=== PATIENT | female | born 1960 | race African-American/Black ===

== ENCOUNTER 2018-09-17 12:04 | Emergency (ER) | payer MEDICARE ==
[~2018-09-17] VITALS: Ht 157.5 cm; Wt 88.3 kg
--- NOTE | 2018-09-17 12:49 | PHYS DOC ---
Adult General Chief Complaint Chief Complaint: PSYCH EVALUATION HPI HPI Patient is a 58 year old AA female who presents to the emergency department with reports of demons in her head. Patient reports that for the last 12 years she has had demons that come and visit her intermittently. She states that she is supposed to take Latuda for schizophrenia but has been off of the medication for several months. Patient reports concern that the demon is going to harm and rape her children and grandchildren. She states the demon already has her grandson. she currently denies any suicide attempt or suicidal ideations. Radha valladares also denies any homicidal ideations. She denies any pain at this time. Review of Systems Review of Systems Constitutional: Denies fever or chills [] Eyes: Denies change in visual acuity, redness, or eye pain [] HENT: Denies nasal congestion or sore throat [] Respiratory: Denies cough or shortness of breath [] Cardiovascular: No additional information not addressed in HPI [] GI: Denies abdominal pain, nausea, vomiting, or diarrhea [] : Denies dysuria or hematuria [] Musculoskeletal: Denies back pain or joint pain [] Integument: Denies rash or skin lesions [] Neurologic: Denies headache, focal weakness or sensory changes [] psychiatric: see HPI complete systems were reviewed and found to be within normal limits, except as documented in this note. Current Medications Current Medications Current Medications Medications (Trade) Dose Ordered Sig/Cassidy Start Time Stop Time Status Last Admin Dose Admin Potassium Chloride (Klor-Con) 40 meq 1X ONCE 09/17/18 14:30 09/17/18 14:31 DC 09/17/18 14:57 40 MEQ Ziprasidone (Geodon Im) 10 mg 1X ONCE 09/17/18 13:30 09/17/18 13:31 DC 09/17/18 13:40 10 MG Allergies Allergies Allergies Coded Allergies Type Severity Reaction Last Updated Verified No Known Drug Allergies 09/17/18 No Physical Exam Physical Exam Constitutional: Well developed, well nourished, no acute distress, non-toxic appearance. [] HENT: Normocephalic, atraumatic, bilateral external ears normal, oropharynx dry, lips dry,, no oral exudates, nose normal. [] Eyes: PERRLA, conjunctiva normal, no discharge. [] Neck: Normal range of motion, no stridor. [] Cardiovascular:Heart rate regular rhythm Lungs & Thorax: Bilateral breath sounds clear to auscultation [] Abdomen: Bowel sounds normal, soft, no tenderness, no masses, no pulsatile masses. [] Skin: Warm, dry, no erythema, no rash. [] Extremities: No cyanosis, no clubbing, ROM intact, no edema. [] Neurologic: Alert and oriented X 3, no focal deficits noted. [] Psychologic: Affect paranoid, anxious; auditory hallucinations present, rambling Current Patient Data Vital Signs Lab Values Laboratory Tests Test 09/17/18 12:30 09/17/18 13:00 09/17/18 13:22 Urine Opiates Screen Neg (NEG) Urine Methadone Screen Neg (NEG) Urine Barbiturates Neg (NEG) Urine Phencyclidine Screen Neg (NEG) Urine Amphetamine/Methamphetamine Neg (NEG) Urine Benzodiazepines Screen Neg (NEG) Urine Cocaine Screen Neg (NEG) Urine Cannabinoids Screen Neg (NEG) Urine Ethyl Alcohol Neg (NEG) Urine Test Negative (NEG) White Blood Count 6.3 x10^3/uL (4.0-11.0) Red Blood Count 4.62 x10^6/uL (3.50-5.40) Hemoglobin 14.9 g/dL (12.0-15.5) Hematocrit 43.0 % (36.0-47.0) Mean Corpuscular Volume 93 fL (79-100) Mean Corpuscular Hemoglobin 32 pg (25-35) Mean Corpuscular Hemoglobin Concent 35 g/dL (31-37) Red Cell Distribution Width 15.0 % (11.5-14.5) H Platelet Count 281 x10^3/uL (140-400) Neutrophils (%) (Auto) 59 % (31-73) Lymphocytes (%) (Auto) 30 % (24-48) Monocytes (%) (Auto) 10 % (0-9) H Eosinophils (%) (Auto) 0 % (0-3) Basophils (%) (Auto) 1 % (0-3) Neutrophils # (Auto) 3.7 x10^3uL (1.8-7.7) Lymphocytes # (Auto) 1.9 x10^3/uL (1.0-4.8) Monocytes # (Auto) 0.6 x10^3/uL (0.0-1.1) Eosinophils # (Auto) 0.0 x10^3/uL (0.0-0.7) Basophils # (Auto) 0.0 x10^3/uL (0.0-0.2) Sodium Level 143 mmol/L (136-145) Potassium Level 3.2 mmol/L (3.5-5.1) L Chloride Level 105 mmol/L (98-107) Carbon Dioxide Level 29 mmol/L (21-32) Anion Gap 9 (6-14) Blood Urea Nitrogen 9 mg/dL (7-20) Creatinine 0.9 mg/dL (0.6-1.0) Estimated GFR (Cockcroft-Gault) 78.4 BUN/Creatinine Ratio 10 (6-20) Glucose Level 115 mg/dL (70-99) H Calcium Level 9.9 mg/dL (8.5-10.1) Magnesium Level 1.8 mg/dL (1.8-2.4) Total Bilirubin 0.6 mg/dL (0.2-1.0) Aspartate Amino Transferase (AST) 18 U/L (15-37) Alanine Aminotransferase (ALT) 30 U/L (14-59) Alkaline Phosphatase 71 U/L (46-116) Total Protein 7.7 g/dL (6.4-8.2) Albumin 3.6 g/dL (3.4-5.0) Albumin/Globulin Ratio 0.9 (1.0-1.7) L Laboratory Tests 09/17/18 13:22 Laboratory Tests 09/17/18 13:22 EKG EKG [] Radiology/Procedures Radiology/Procedures [] Course & Med Decision Making Course & Med Decision Making Pertinent Labs and Imaging studies reviewed. (See chart for details) dx: schizophrenia with acute paranoia, paranoia, auditory hallucinations 1:1 obs initiated upon arrival, CBC unremarkable, patient's potassium is 3.2, glucose 115, CMP otherwise unremarkable; urine drug screen negative, PAT consult conducted by Volodymyr. Patient was given 40 mEq of potassium chloride, and 10 mg of intramuscular Geodon in the department. 2055 patient is accepted by to [facility] psychiatric facility, will transfer patient via EMS Dragon Disclaimer Dragon Disclaimer This electronic medical record was generated, in whole or in part, using a voice recognition dictation system. Departure Departure Impression: Primary Impression: Paranoid schizophrenia, chronic condition with acute exacerbation Additional Impressions: Acute paranoia Hallucinations, unspecified Disposition: 02 TRANSFER [facility] ([facility]) Condition: STABLE Referrals: NO PCP (PCP) Problem Qualifiers BERTHA MIRANDA APRN Sep 17, 2018 12:49
[2018-09-17 13:01] LABS: AMPHETAMINE/METHAMPHETAMINE NEG (NEG); BARBITURATES NEG (NEG); BENZODIAZEPINES NEG (NEG); CANNABINOIDS NEG (NEG); COCAINE NEG (NEG); METHADONE NEG (NEG); OPIATES NEG (NEG); PHENCYCLIDINE NEG (NEG)
[2018-09-17 13:28] LABS: BASO % 1 % (0-3); EOS % 0 % (0-3); HEMOGLOBIN 14.9 g/dL (12.0-15.5); LYMPH # 1.9 x10^3/uL (1.0-4.8); LYMPH % 30 % (24-48); MEAN CORPUSCULAR HEMOGLOBIN 32 pg (25-35); MEAN CORPUSCULAR HGB CONC 35 g/dL (31-37); MEAN CORPUSCULAR VOLUME 93 fL (79-100); MONO # 0.6 x10^3/uL (0.0-1.1); MONO % 10 % (0-9); NEUT # 3.7 x10^3uL (1.8-7.7); NEUT % 59 % (31-73); PLATELET COUNT 281 x10^3/uL (140-400); RED BLOOD COUNT 4.62 x10^6/uL (3.50-5.40); WHITE BLOOD COUNT 6.3 x10^3/uL (4.0-11.0)
[2018-09-17] MEDS ORDERED: ZIPRASIDONE IM 20 MG VIAL. IM ONE (13:30)
[2018-09-17 13:38] LABS: U PREG PATIENT NEGATIVE (NEG)
[2018-09-17 13:52] LABS: CALCIUM 9.9 mg/dL (8.5-10.1); CREATININE 0.9 mg/dL (0.6-1.0); GFR 78.4; POTASSIUM 3.2 mmol/L (3.5-5.1)
[2018-09-17 13:58] LABS: ALBUMIN 3.6 g/dL (3.4-5.0); ALBUMIN/GLOBULIN RATIO 0.9 (1.0-1.7); TOTAL BILIRUBIN 0.6 mg/dL (0.2-1.0); TOTAL PROTEIN 7.7 g/dL (6.4-8.2)
[2018-09-17] MEDS ORDERED: POTASSIUM CHLORIDE 20 MEQ TABLET.ER. PO ONE (14:30)
[2018-09-17 21:06] VITALS: BP 154/89
== END 2018-09-17 21:30 ==
LOC: ER 12:04
DX: F20.0 Paranoid schizophrenia (principal)
CPT/HCPCS: 36415; 80053; 80307; 81025; 83735; 85025; 96372; 99285; J3486

== ENCOUNTER 2019-11-08 07:26 | Emergency (ER) | payer MEDICARE ==
[~2019-11-08] VITALS: Ht 157.5 cm; Wt 198.0 kg
[2019-11-08] MEDS ORDERED: ASPIRIN CHEWABLE 81 MG TABLET. PO ONE (09:30)
[2019-11-08 09:37] VITALS: BP 153/102
--- NOTE | 2019-11-08 09:46 | PHYS DOC ---
Past Medical History Past Medical History: No Pertinent History Past Surgical History: Tubal ligation Smoking Status: Current Every Day Smoker Alcohol Use: Occasionally Drug Use: Cocaine Adult General Chief Complaint Chief Complaint: BREAST PROBLEM HPI HPI Patient is a 59 year old female who presents with epigastric pain that has been ongoing for several days. The patient states that it is in the bottom of her chest that radiates to the right side of her chest. It's her pain as 5 out of 10 in severity with patient states she's had a cold that has improved that started several weeks ago. Denies any medical history the exception of hypertension. Complete ROS were reviewed and found to be within normal limits, except as documented in the HPI Current Medications Current Medications Current Medications Medications (Trade) Dose Ordered Sig/Cassidy Start Time Stop Time Status Last Admin Dose Admin Aspirin (Children'S Aspirin) 324 mg 1X ONCE 11/08/19 09:30 11/08/19 09:33 DC 11/08/19 09:47 324 MG Allergies Allergies Allergies Coded Allergies Type Severity Reaction Last Updated Verified No Known Drug Allergies 09/17/18 No Physical Exam Physical Exam Constitutional: Well developed, well nourished, no acute distress, non-toxic appearance. [] HENT: Normocephalic, atraumatic, bilateral external ears normal, oropharynx moist, no oral exudates, nose normal. [] Eyes: PERRLA, EOMI, conjunctiva normal, no discharge. [] Neck: Normal range of motion, no tenderness, supple, no stridor. [] Cardiovascular:Heart rate regular rhythm, no murmur, epigastric pain is tender to palpation. Lungs & Thorax: Bilateral breath sounds clear to auscultation [] Abdomen: Bowel sounds normal, soft, no masses, no pulsatile masses. [] Skin: Warm, dry, no erythema, no rash. [] Back: No tenderness, no CVA tenderness. [] Extremities: No tenderness, no cyanosis, no clubbing, ROM intact, no edema. [] Neurologic: Alert and oriented X 3, normal motor function, normal sensory function, no focal deficits noted. [] Psychologic: Affect normal, judgement normal, mood normal. [] Current Patient Data Vital Signs Vital Signs Date Time Temp Pulse Resp B/P (MAP) Pulse Ox O2 Delivery O2 Flow Rate FiO2 11/08/19 07:51 97.6 64 20 155/106 (122) 95 Room Air 97.6 Lab Values Laboratory Tests Test 11/08/19 09:40 White Blood Count 5.7 x10^3/uL (4.0-11.0) Red Blood Count 4.35 x10^6/uL (3.50-5.40) Hemoglobin 13.4 g/dL (12.0-15.5) Hematocrit 40.3 % (36.0-47.0) Mean Corpuscular Volume 93 fL (79-100) Mean Corpuscular Hemoglobin 31 pg (25-35) Mean Corpuscular Hemoglobin Concent 33 g/dL (31-37) Red Cell Distribution Width 15.3 % (11.5-14.5) H Platelet Count 289 x10^3/uL (140-400) Neutrophils (%) (Auto) 64 % (31-73) Lymphocytes (%) (Auto) 28 % (24-48) Monocytes (%) (Auto) 6 % (0-9) Eosinophils (%) (Auto) 1 % (0-3) Basophils (%) (Auto) 1 % (0-3) Neutrophils # (Auto) 3.6 x10^3/uL (1.8-7.7) Lymphocytes # (Auto) 1.6 x10^3/uL (1.0-4.8) Monocytes # (Auto) 0.4 x10^3/uL (0.0-1.1) Eosinophils # (Auto) 0.1 x10^3/uL (0.0-0.7) Basophils # (Auto) 0.0 x10^3/uL (0.0-0.2) Prothrombin Time 11.4 SEC (11.7-14.0) L Prothrombin Time INR 0.9 (0.8-1.1) Activated Partial Thromboplast Time 25 SEC (24-38) Sodium Level 142 mmol/L (136-145) Potassium Level 4.0 mmol/L (3.5-5.1) Chloride Level 105 mmol/L (98-107) Carbon Dioxide Level 26 mmol/L (21-32) Anion Gap 11 (6-14) Blood Urea Nitrogen 15 mg/dL (7-20) Creatinine 1.0 mg/dL (0.6-1.0) Estimated GFR (Cockcroft-Gault) 69.1 BUN/Creatinine Ratio 15 (6-20) Glucose Level 134 mg/dL (70-99) H Calcium Level 8.7 mg/dL (8.5-10.1) Total Bilirubin 0.3 mg/dL (0.2-1.0) Aspartate Amino Transferase (AST) 16 U/L (15-37) Alanine Aminotransferase (ALT) 24 U/L (14-59) Alkaline Phosphatase 54 U/L (46-116) Troponin I Quantitative < 0.017 ng/mL (0.000-0.055) Total Protein 5.9 g/dL (6.4-8.2) L Albumin 2.9 g/dL (3.4-5.0) L Albumin/Globulin Ratio 1.0 (1.0-1.7) Laboratory Tests 11/08/19 09:40 Laboratory Tests 11/08/19 09:40 EKG EKG [] Radiology/Procedures Radiology/Procedures [][facility] [address] [place] [address] IMAGING REPORT Signed PATIENT: IGNACIO BOYD ACCOUNT: [id number] : 1960 LOCATION: ER AGE: 59 SEX: F EXAM STATUS: REG ER ORD. PHYSICIAN: KIMANI SKELTON APRN REASON: COUGH,CHEST PAIN PROCEDURE: CHEST PA & LATERAL Chest, PA and Lateral: Technique: PA and lateral views of the chest were obtained. History: Cough. Comparison: None. Findings: The cardiomediastinal silhouette grossly appears unremarkable. Mild prominent bilateral interstitial lung markings likely mild interstitial infiltrates or edema. IMPRESSION: Mild prominent bilateral interstitial lung markings likely mild interstitial infiltrates or edema. Electronically signed by: Ed Li MD (11/08/2019 10:32 AM) [id number] DICTATED and SIGNED BY: ED LI MD DATE: 11/08/19 1032 Course & Med Decision Making Course & Med Decision Making Pertinent Labs and Imaging studies reviewed. (See chart for details) Patient is having some epigastric pain that is tender on palpation. The patient has had a cough the last several weeks. Will get EKG, chest x-ray, labs, it is likely musculoskeletal in nature. Labs are unremarkable. Chest x-ray shows possible pneumonia. Dragon Disclaimer Dragon Disclaimer This electronic medical record was generated, in whole or in part, using a voice recognition dictation system. Departure Departure Impression: Primary Impression: Pneumonia Disposition: HOME, SELF-CARE Condition: STABLE Referrals: UNKNOWN PCP NAME (PCP) Patient Instructions: Pneumonia, Adult Additional Instructions: Thank you for visiting [facility]. We appreciate you trusting us with your care. If any additional problems come up don't hesitate to return to visit us. Please follow up with your primary care provider so they can plan additional care if needed and know about the problem that you had. If symptoms worsen come back to the Emergency Department. Any concerning symptoms that start such as chest pain, shortness of air, weakness or numbness on one side of the body, running high fevers or any other concerning symptoms return to the ER. You have been prescribed an antibiotic today to help fight your infection. Please take all of the antibiotic as directed. If after 48 hours the infection is not improving, please return for more care. If the infection worsens, return to ER for additional care. Scripts Doxycycline Hyclate (DOXYCYCLINE HYCLATE) 100 Mg Capsule 1 CAP PO BID for 10 Days, #20 CAP Prov: KIMANI SKELTON APRN 11/08/19 The HEART Score for CP Pts HEART Score for Chest Pain: HEART Score for Chest Pain Response (Comments) Value History Slighlty/Non-Suspicious 0 ECG Normal 0 Age >45 - < 65 1 Risk Factors 1 or 2 Risk Factors 1 Troponin < Normal Limit 0 Total 2 Risk Factors: Risk Factors: DM, Current or recent (<one month) smoker, HTN, HLP, family history of CAD, obesity. Risk Scores: Score 0 - 3: 2.5% MACE over next 6 weeks - Discharge Home Score 4 - 6: 20.3% MACE over next 6 weeks - Admit for Clinical Observation Score 7 - 10: 72.7% MACE over next 6 weeks - Early Invasive Strategies Problem Qualifiers Primary Impression: Pneumonia Pneumonia type: due to unspecified organism Laterality: bilateral Lung location: lower lobe of lung Qualified Codes: J18.9 - Pneumonia, unspecified organism KIMANI SKELTON APRN Nov 08, 2019 09:46
[2019-11-08 10:00] LABS: CALCIUM 8.7 mg/dL (8.5-10.1); GFR 69.1
[2019-11-08 10:03] LABS: BASO % 1 % (0-3); EOS # 0.1 x10^3/uL (0.0-0.7); EOS % 1 % (0-3); HEMATOCRIT 40.3 % (36.0-47.0); HEMOGLOBIN 13.4 g/dL (12.0-15.5); LYMPH # 1.6 x10^3/uL (1.0-4.8); LYMPH % 28 % (24-48); MEAN CORPUSCULAR HEMOGLOBIN 31 pg (25-35); MEAN CORPUSCULAR HGB CONC 33 g/dL (31-37); MEAN CORPUSCULAR VOLUME 93 fL (79-100); MONO # 0.4 x10^3/uL (0.0-1.1); MONO % 6 % (0-9); NEUT # 3.6 x10^3/uL (1.8-7.7); NEUT % 64 % (31-73); PLATELET COUNT 289 x10^3/uL (140-400); RED BLOOD COUNT 4.35 x10^6/uL (3.50-5.40); RED CELL DISTRIBUTION WIDTH 15.3 % (11.5-14.5); WHITE BLOOD COUNT 5.7 x10^3/uL (4.0-11.0)
[2019-11-08 10:05] LABS: ALBUMIN 2.9 g/dL (3.4-5.0); TOTAL BILIRUBIN 0.3 mg/dL (0.2-1.0); TOTAL PROTEIN 5.9 g/dL (6.4-8.2)
[2019-11-08 10:17] LABS: PROTHROMBIN TIME PATIENT 11.4 SEC (11.7-14.0)
--- NOTE | 2019-11-08 10:32 | EKG ---
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
--- NOTE | 2019-11-08 10:35 | RAD ---
Chest, PA and Lateral: Technique: PA and lateral views of the chest were obtained. History: Cough. Comparison: None. Findings: The cardiomediastinal silhouette grossly appears unremarkable. Mild prominent bilateral interstitial lung markings likely mild interstitial infiltrates or edema. IMPRESSION: Mild prominent bilateral interstitial lung markings likely mild interstitial infiltrates or edema. Electronically signed by: Ed Li MD (11/08/2019 10:32 AM) [id number]
[2019-11-08] MEDS ORDERED: DOXY100C2 PO (10:45)
== END 2019-11-08 11:04 | disposition home or self-care (01) ==
LOC: ER 07:26
DX: J18.9 Pneumonia, unspecified organism (principal); F17.200 Nicotine dependence, unspecified, uncomplicated
CPT/HCPCS: 36415; 71046; 80053; 84484; 85025; 85610; 85730; 93005; 99285-25

== ENCOUNTER 2019-12-28 07:01 | Emergency (ER) | payer MEDICARE ==
[~2019-12-28] VITALS: Ht 157.5 cm; Wt 185.0 kg
[~2019-12-28 07:01] MED LIST: DOXY100C2 PO
--- NOTE | 2019-12-28 07:20 | PHYS DOC ---
Past Medical History Past Medical History: Hypertension Past Surgical History: Tubal ligation Smoking Status: Current Every Day Smoker Alcohol Use: Occasionally Drug Use: Cocaine General Adult EDM: Chief Complaint: COUGH HPI: HPI: Patient is a 59 year old female who presents to ER today for evaluation chest pain off and on over the weekend. Patient has history of hypertension. She is supposed be on amlodipine 10 mg daily, she had not taken her morning medication. Patient also has been drinking alcohol since she been laid off from work. Patient denies any fever. Patient says she was evaluated here in November, diagnosed with pneumonia. Patient was given antibiotics but she did not finish the medication. Patient denies any fever. Patient denies being exposed to anybody who was tested positive for the COVID-19. Patient denies any history of diabetes, no family history of heart disease, no recent travel or operation. Patient is a smoker. Patient had no previous family history of blood clot disorder. Review of Systems: Review of Systems: Constitutional: Denies fever or chills. [] Eyes: Denies change in visual acuity. [] HENT: Denies nasal congestion or sore throat. [] Respiratory: Positive cough , no shortness of breath. [] Cardiovascular: Positive for chest pain , no edema. [] GI: Denies abdominal pain, nausea, vomiting, bloody stools or diarrhea. [] : Denies dysuria. [] Musculoskeletal: Denies back pain or joint pain. [] Integument: Denies rash. [] Neurologic: Denies headache, focal weakness or sensory changes. [] Endocrine: Denies polyuria or polydipsia. [] Lymphatic: Denies swollen glands. [] Psychiatric: Denies depression or anxiety. [] Heart Score: HEART Score for Chest Pain: HEART Score for Chest Pain Response (Comments) Value History Slighlty/Non-Suspicious 0 ECG Nonspecific Repolarizatio 1 Age >45 - < 65 1 Risk Factors 1 or 2 Risk Factors 1 Troponin >1-<3x Normal Limit 1 Total 4 Risk Factors: Risk Factors: DM, Current or recent (<one month) smoker, HTN, HLP, family history of CAD, obesity. Risk Scores: Score 0 - 3: 2.5% MACE over next 6 weeks - Discharge Home Score 4 - 6: 20.3% MACE over next 6 weeks - Admit for Clinical Observation Score 7 - 10: 72.7% MACE over next 6 weeks - Early Invasive Strategies Allergies: Allergies: Allergies Coded Allergies Type Severity Reaction Last Updated Verified No Known Drug Allergies 09/17/18 No Physical Exam: PE: Constitutional: Well developed, well nourished, no acute distress, non-toxic appearance. [] HENT: Normocephalic, atraumatic, bilateral external ears normal, oropharynx moist, no oral exudates, nose normal. [] Eyes: PERRLA, EOMI, conjunctiva normal, no discharge. [] Neck: Normal range of motion, no tenderness, supple, no stridor. [] Cardiovascular:Heart rate regular rhythm, no murmur [] Lungs & Thorax: Bilateral breath sounds clear to auscultation [] Abdomen: Bowel sounds normal, soft, no tenderness, no masses, no pulsatile masses. [] Skin: Warm, dry, no erythema, no rash. [] Back: No tenderness, no CVA tenderness. [] Extremities: No tenderness, no cyanosis, no clubbing, ROM intact, no edema. [] Neurologic: Alert and oriented X 3, normal motor function, normal sensory function, no focal deficits noted. [] Psychologic: Affect normal, judgement normal, mood normal. [] EKG: EKG: EKG was done at 748, heart rate of 68 beats per minutes, no ST segment elevation [] Radiology/Procedures: Radiology/Procedures: [][facility] [address] [place] [address] IMAGING REPORT Signed PATIENT: IGNACIO BOYD ACCOUNT: [id number] : 1960 LOCATION: ER AGE: 59 SEX: F EXAM STATUS: REG ER ORD. PHYSICIAN: DILCIA LACY DO REASON: COUGH, SOA PROCEDURE: PORTABLE CHEST 1V PORTABLE CHEST 1V History: Cough, shortness of breath.. Cardiomediastinal silhouette is stable and not enlarged. The aorta again demonstrates ectasia and tortuosity. No evidence of focal infiltrate. No pleural effusion. No evidence of pneumothorax. Bones appear grossly intact. IMPRESSION: Stable exam. No consolidating infiltrate. Electronically signed by: Speedy Bellamy MD (12/28/2019 8:46 AM) [id number] DICTATED and SIGNED BY: SPEEDY BELLAMY MD DATE: 12/28/19 0846 [facility] [address] [place] [address] IMAGING REPORT Signed PATIENT: IGNACIO BOYD ACCOUNT: [id number] : 1960 LOCATION: ER AGE: 59 SEX: F EXAM STATUS: REG ER ORD. PHYSICIAN: DILCIA LACY DO REASON: chest pain, hypertensive, dissection protocol PROCEDURE: CT ANGIO CHEST ABD PELVIS Examination: CT ANGIO CHEST ABD PELVIS History: Chest pain, hypertension Comparison/Correlation: None Findings: Axial images of the chest, abdomen, and pelvis were obtained without contrast and then with contrast according to dissection protocol. Maximum intensity projection images were provided. 3-D volume rendered images were provided. The left common carotid artery arises from the right brachycephalic artery. High takeoff of the right common carotid artery at the base of the neck level is seen. There is no intramural hematoma identified involving the aorta or its branches. No dissection identified. Superior mesenteric and sagittal arteries are widely patent. 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 The tracheobronchial tree is unremarkable. Both emphysematous involvement of the upper lung francois is noted. No infiltrate or effusion. No enlarged thoracic lymph nodes. Diffuse fatty infiltration of the liver is present. Spleen, pancreas, adrenal glands and left kidney are normal. Right renal lower pole 1.3 cm diameter cyst is present. Diverticulosis is present. Appendix is normal. No enlarged abdominal or pelvic lymph nodes. No ascites or pelvic free fluid. Uterus is enlarged with multiple fibroids within it. The largest of these at the uterine fundus anteriorly measuring 2.7 cm diameter. Bony structures are unremarkable. Impression: There is no evidence of aortic dissection, aneurysm, or intramural hematoma. 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 Fatty liver. Diverticulosis. PQRS Compliance Statement: One or more of the following individualized dose reduction techniques were utilized for this examination: 1. Automated exposure control 2. Adjustment of the mA and/or kV according to patient size 3. Use of iterative reconstruction technique Electronically signed by: Bubba Koroma MD (12/28/2019 11:16 AM) [id number] DICTATED and SIGNED BY: BUBBA KOROMA MD DATE: 12/28/19 1116 Course & Med Decision Making: Course & Med Decision Making COVID-19 CRITERIA: The patient was evaluated during the global COVID-19 pandemic, and that diagnosis was suspected/considered upon their initial presentation. Their evaluation, treatment and testing was consistent with curr ent guidelines for patients who present with complaints or symptoms that may be related to COVID-19. Pertinent Labs and Imaging studies reviewed. (See chart for details) Dragon Disclaimer: Dragon Disclaimer: This electronic medical record was generated, in whole or in part, using a voice recognition dictation system. Departure Departure Impression: Primary Impression: Chest pain Additional Impression: Hypertension Disposition: ADMITTED INPATIENT Admitting Physician: JOSE (DR. SHINE) Condition: STABLE Referrals: UNKNOWN PCP NAME (PCP) COVID-19 Assessment: COVID-19 Patient Risks: Age 65 or older: No Sign of co-morbidity: No Exp to person + for COVID: No Exp to PUI: No Travel from affected area: No Lower respiratory symptoms: No Fever: No Other: No PPE Use: Full PPE with N95 mask or PAPR: Yes DILCIA LACY DO Dec 28, 2019 07:20
[2019-12-28 08:09] LABS: BASO % 1 % (0-3); EOS # 0.1 x10^3/uL (0.0-0.7); EOS % 2 % (0-3); HEMATOCRIT 41.9 % (36.0-47.0); HEMOGLOBIN 14.2 g/dL (12.0-15.5); LYMPH % 23 % (24-48); MEAN CORPUSCULAR HEMOGLOBIN 32 pg (25-35); MEAN CORPUSCULAR HGB CONC 34 g/dL (31-37); MEAN CORPUSCULAR VOLUME 93 fL (79-100); MONO # 0.4 x10^3/uL (0.0-1.1); MONO % 10 % (0-9); NEUT # 2.7 x10^3/uL (1.8-7.7); NEUT % 65 % (31-73); PLATELET COUNT 267 x10^3/uL (140-400); RED BLOOD COUNT 4.49 x10^6/uL (3.50-5.40); RED CELL DISTRIBUTION WIDTH 15.5 % (11.5-14.5); WHITE BLOOD COUNT 4.2 x10^3/uL (4.0-11.0)
--- NOTE | 2019-12-28 08:11 | EKG ---
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
[2019-12-28 08:15] LABS: CALCIUM 9.2 mg/dL (8.5-10.1); CREATININE 1.1 mg/dL (0.6-1.0); GFR 61.9; POTASSIUM 4.1 mmol/L (3.5-5.1)
[2019-12-28 08:21] LABS: ALBUMIN 3.7 g/dL (3.4-5.0); ALBUMIN/GLOBULIN RATIO 1.2 (1.0-1.7); TOTAL BILIRUBIN 1.1 mg/dL (0.2-1.0); TOTAL PROTEIN 6.7 g/dL (6.4-8.2)
[2019-12-28 08:30] LABS: PROTHROMBIN TIME PATIENT 11.5 SEC (11.7-14.0)
--- NOTE | 2019-12-28 08:50 | RAD ---
PORTABLE CHEST 1V History: Cough, shortness of breath.. Cardiomediastinal silhouette is stable and not enlarged. The aorta again demonstrates ectasia and tortuosity. No evidence of focal infiltrate. No pleural effusion. No evidence of pneumothorax. Bones appear grossly intact. IMPRESSION: Stable exam. No consolidating infiltrate. Electronically signed by: Speedy Bellamy MD (12/28/2019 8:46 AM) [id number]
[2019-12-28 08:58] LABS: BILIRUBIN,URINE NEGATIVE (NEG); CLARITY,URINE CLEAR; COLOR,URINE YELLOW; NITRITE,URINE POSITIVE (NEG); PROTEIN,URINE NEGATIVE (NEG-TRACE); UROBILINOGEN,URINE 0.2 mg/dL (0.2 mg/dL)
[2019-12-28 09:13] LABS: RBC,URINE OCC /HPF (0-2)
[2019-12-28 09:14] LABS: BACTERIA,URINE MANY /HPF (0-FEW); SQUAMOUS EPITHELIAL CELL,UR MANY /LPF; WBC,URINE >40 /HPF (0-4)
[2019-12-28] MEDS ORDERED: hydrALAZINE 20 MG/ML VIAL. IVP ONE (09:15)
[2019-12-28] MEDS ORDERED: cefTRIAXone IV Push 1 GM VIAL. IVP ONE (09:15)
[2019-12-28] MEDS ORDERED: IOHEXOL 350 MG/ML 100 ML VIAL. IV ONE (10:00)
[2019-12-28 10:08] VITALS: BP 182/87
[2019-12-28] MEDS ORDERED: CONTRAST GIVEN. MC PRN (10:15)
--- NOTE | 2019-12-28 11:18 | RAD ---
Examination: CT ANGIO CHEST ABD PELVIS History: Chest pain, hypertension Comparison/Correlation: None Findings: Axial images of the chest, abdomen, and pelvis were obtained without contrast and then with contrast according to dissection protocol. Maximum intensity projection images were provided. 3-D volume rendered images were provided. The left common carotid artery arises from the right brachycephalic artery. High takeoff of the right common carotid artery at the base of the neck level is seen. There is no intramural hematoma identified involving the aorta or its branches. No dissection identified. Superior mesenteric and sagittal arteries are widely patent. 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 The tracheobronchial tree is unremarkable. Both emphysematous involvement of the upper lung francois is noted. No infiltrate or effusion. No enlarged thoracic lymph nodes. Diffuse fatty infiltration of the liver is present. Spleen, pancreas, adrenal glands and left kidney are normal. Right renal lower pole 1.3 cm diameter cyst is present. Diverticulosis is present. Appendix is normal. No enlarged abdominal or pelvic lymph nodes. No ascites or pelvic free fluid. Uterus is enlarged with multiple fibroids within it. The largest of these at the uterine fundus anteriorly measuring 2.7 cm diameter. Bony structures are unremarkable. Impression: There is no evidence of aortic dissection, aneurysm, or intramural hematoma. 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 Fatty liver. Diverticulosis. PQRS Compliance Statement: One or more of the following individualized dose reduction techniques were utilized for this examination: 1. Automated exposure control 2. Adjustment of the mA and/or kV according to patient size 3. Use of iterative reconstruction technique Electronically signed by: Bubba Phillips MD (12/28/2019 11:16 AM) [id number]
--- NOTE | 2019-12-28 11:52 | PDOC1 ---
History and Physical Date of Admission Date of Admission DATE: 12/28/19 TIME: 11:52 Identification/Chief Complaint Chief Complaint presented to ER today for evaluation chest pain off and on over the weekend. ///history of hypertension. not taking amlodipine 10 mg daily, Patient also has been drinking alcohol since she been laid off from work. Patient denies any fever. Patient says she was evaluated here in November, diagnosed with pneumonia. Patient denies any fever. Patient denies being exposed to anybody who was tested positive for the COVID-19. Patient denies any history of diabetes, no family history of heart disease, no recent travel or operation. /// smoker. Past Medical History Cardiovascular: HTN, Hyperlipidemia Psych: Anxiety, Addictions Family History Family History: High Cholestrol, Hypertension Social History Smoke: <1 pack per day ALCOHOL: heavy Drugs: None Current Medications Current Medications Current Medications Hydralazine HCl (Apresoline Inj) 10 mg 1X ONCE IVP Last administered on 12/28/19at 09:33; Start 12/28/19 at 09:15; Stop 12/28/19 at 09:22; Status DC Ceftriaxone Sodium (Rocephin) 1 gm 1X ONCE IVP Last administered on 12/28/19at 09:33; Start 12/28/19 at 09:15; Stop 12/28/19 at 09:22; Status DC Iohexol (Omnipaque 350 Mg/ml) 90 ml 1X ONCE IV Last administered on 12/28/19at 10:00; Start 12/28/19 at 10:00; Stop 12/28/19 at 10:02; Status DC Info (CONTRAST GIVEN -- Rx MONITORING) 1 each PRN DAILY PRN MC SEE COMMENTS; Start 12/28/19 at 10:15; Stop 12/30/19 at 10:14 Active Scripts Active Doxycycline Hyclate 100 Mg Capsule 1 Cap PO BID 10 Days Allergies Allergies: Coded Allergies: No Known Drug Allergies (Unverified , 09/17/18) ROS Review of System Review of Systems: Review of Systems: Constitutional: Denies fever or chills. [] Eyes: Denies change in visual acuity. [] HENT: Denies nasal congestion or sore throat. [] Respiratory: Positive cough , no shortness of breath. [] Cardiovascular: Positive for chest pain , no edema. [] GI: Denies abdominal pain, nausea, vomiting, bloody stools or diarrhea. [] : Denies dysuria. [] Musculoskeletal: Denies back pain or joint pain. [] Integument: Denies rash. [] Neurologic: Denies headache, focal weakness or sensory changes. [] Endocrine: Denies polyuria or polydipsia. [] Lymphatic: Denies swollen glands. [] Psychiatric: Denies depression or anxiety. [] 14 pt ros otherwise neg Physical Exam Physical Exam Physical Exam: PE: Constitutional: Well developed, well nourished, no acute distress, non-toxic appearance. [] HENT: Normocephalic, atraumatic, bilateral external ears normal, oropharynx moist, no oral exudates, nose normal. [] Eyes: PERRLA, EOMI, conjunctiva normal, no discharge. [] Neck: Normal range of motion, no tenderness, supple, no stridor. [] Cardiovascular:Heart rate regular rhythm, no murmur [] Lungs & Thorax: Bilateral breath sounds clear to auscultation [] Abdomen: Bowel sounds normal, soft, no tenderness, no masses, no pulsatile masses. [] Skin: Warm, dry, no erythema, no rash. [] Back: No tenderness, no CVA tenderness. [] Extremities: No tenderness, no cyanosis, no clubbing, ROM intact, no edema. [] Neurologic: Alert and oriented X 3, normal motor function, normal sensory function, no focal deficits noted. [] Psychologic: Affect normal, judgement normal, mood normal. [] HEENT: EOMI Rectal Exam: not examined Extremities: No cyanosis Vitals Vitals Vital Signs Date Time Temp Pulse Resp B/P (MAP) Pulse Ox O2 Delivery O2 Flow Rate FiO2 12/28/19 10:08 74 18 182/87 (118) 99 Room Air 12/28/19 07:10 98.1 98.1 Labs Labs Laboratory Tests Test 12/28/19 08:00 12/28/19 08:35 White Blood Count 4.2 x10^3/uL (4.0-11.0) Red Blood Count 4.49 x10^6/uL (3.50-5.40) Hemoglobin 14.2 g/dL (12.0-15.5) Hematocrit 41.9 % (36.0-47.0) Mean Corpuscular Volume 93 fL (79-100) Mean Corpuscular Hemoglobin 32 pg (25-35) Mean Corpuscular Hemoglobin Concent 34 g/dL (31-37) Red Cell Distribution Width 15.5 % (11.5-14.5) Platelet Count 267 x10^3/uL (140-400) Neutrophils (%) (Auto) 65 % (31-73) Lymphocytes (%) (Auto) 23 % (24-48) Monocytes (%) (Auto) 10 % (0-9) Eosinophils (%) (Auto) 2 % (0-3) Basophils (%) (Auto) 1 % (0-3) Neutrophils # (Auto) 2.7 x10^3/uL (1.8-7.7) Lymphocytes # (Auto) 1.0 x10^3/uL (1.0-4.8) Monocytes # (Auto) 0.4 x10^3/uL (0.0-1.1) Eosinophils # (Auto) 0.1 x10^3/uL (0.0-0.7) Basophils # (Auto) 0.0 x10^3/uL (0.0-0.2) Prothrombin Time 11.5 SEC (11.7-14.0) Prothromb Time International Ratio 0.9 (0.8-1.1) Activated Partial Thromboplast Time 27 SEC (24-38) Sodium Level 139 mmol/L (136-145) Potassium Level 4.1 mmol/L (3.5-5.1) Chloride Level 101 mmol/L (98-107) Carbon Dioxide Level 29 mmol/L (21-32) Anion Gap 9 (6-14) Blood Urea Nitrogen 18 mg/dL (7-20) Creatinine 1.1 mg/dL (0.6-1.0) Estimated GFR (Cockcroft-Gault) 61.9 BUN/Creatinine Ratio 16 (6-20) Glucose Level 125 mg/dL (70-99) Lactic Acid Level 1.1 mmol/L (0.4-2.0) Calcium Level 9.2 mg/dL (8.5-10.1) Total Bilirubin 1.1 mg/dL (0.2-1.0) Aspartate Amino Transf (AST/SGOT) 26 U/L (15-37) Alanine Aminotransferase (ALT/SGPT) 31 U/L (14-59) Alkaline Phosphatase 75 U/L (46-116) Troponin I Quantitative 0.061 ng/mL (0.000-0.055) Total Protein 6.7 g/dL (6.4-8.2) Albumin 3.7 g/dL (3.4-5.0) Albumin/Globulin Ratio 1.2 (1.0-1.7) Urine Collection Type Unknown Urine Color Yellow Urine Clarity Clear Urine pH 6.0 (<5.0-8.0) Urine Specific Barton 1.010 (1.000-1.030) Urine Protein Negative mg/dL (NEG-TRACE) Urine Glucose (UA) Negative mg/dL (NEG) Urine Ketones (Stick) Negative mg/dL (NEG) Urine Blood Negative (NEG) Urine Nitrite Positive (NEG) Urine Bilirubin Negative (NEG) Urine Urobilinogen Dipstick 0.2 mg/dL (0.2 mg/dL) Urine Leukocyte Esterase Moderate (NEG) Urine RBC Occ /HPF (0-2) Urine WBC >40 /HPF (0-4) Urine Squamous Epithelial Cells Many /LPF Urine Bacteria Many /HPF (0-FEW) Laboratory Tests Test 12/28/19 08:00 12/28/19 08:35 White Blood Count 4.2 x10^3/uL (4.0-11.0) Red Blood Count 4.49 x10^6/uL (3.50-5.40) Hemoglobin 14.2 g/dL (12.0-15.5) Hematocrit 41.9 % (36.0-47.0) Mean Corpuscular Volume 93 fL (79-100) Mean Corpuscular Hemoglobin 32 pg (25-35) Mean Corpuscular Hemoglobin Concent 34 g/dL (31-37) Red Cell Distribution Width 15.5 % (11.5-14.5) Platelet Count 267 x10^3/uL (140-400) Neutrophils (%) (Auto) 65 % (31-73) Lymphocytes (%) (Auto) 23 % (24-48) Monocytes (%) (Auto) 10 % (0-9) Eosinophils (%) (Auto) 2 % (0-3) Basophils (%) (Auto) 1 % (0-3) Neutrophils # (Auto) 2.7 x10^3/uL (1.8-7.7) Lymphocytes # (Auto) 1.0 x10^3/uL (1.0-4.8) Monocytes # (Auto) 0.4 x10^3/uL (0.0-1.1) Eosinophils # (Auto) 0.1 x10^3/uL (0.0-0.7) Basophils # (Auto) 0.0 x10^3/uL (0.0-0.2) Prothrombin Time 11.5 SEC (11.7-14.0) Prothromb Time International Ratio 0.9 (0.8-1.1) Activated Partial Thromboplast Time 27 SEC (24-38) Sodium Level 139 mmol/L (136-145) Potassium Level 4.1 mmol/L (3.5-5.1) Chloride Level 101 mmol/L (98-107) Carbon Dioxide Level 29 mmol/L (21-32) Anion Gap 9 (6-14) Blood Urea Nitrogen 18 mg/dL (7-20) Creatinine 1.1 mg/dL (0.6-1.0) Estimated GFR (Cockcroft-Gault) 61.9 BUN/Creatinine Ratio 16 (6-20) Glucose Level 125 mg/dL (70-99) Lactic Acid Level 1.1 mmol/L (0.4-2.0) Calcium Level 9.2 mg/dL (8.5-10.1) Total Bilirubin 1.1 mg/dL (0.2-1.0) Aspartate Amino Transf (AST/SGOT) 26 U/L (15-37) Alanine Aminotransferase (ALT/SGPT) 31 U/L (14-59) Alkaline Phosphatase 75 U/L (46-116) Troponin I Quantitative 0.061 ng/mL (0.000-0.055) Total Protein 6.7 g/dL (6.4-8.2) Albumin 3.7 g/dL (3.4-5.0) Albumin/Globulin Ratio 1.2 (1.0-1.7) Urine Collection Type Unknown Urine Color Yellow Urine Clarity Clear Urine pH 6.0 (<5.0-8.0) Urine Specific Barton 1.010 (1.000-1.030) Urine Protein Negative mg/dL (NEG-TRACE) Urine Glucose (UA) Negative mg/dL (NEG) Urine Ketones (Stick) Negative mg/dL (NEG) Urine Blood Negative (NEG) Urine Nitrite Positive (NEG) Urine Bilirubin Negative (NEG) Urine Urobilinogen Dipstick 0.2 mg/dL (0.2 mg/dL) Urine Leukocyte Esterase Moderate (NEG) Urine RBC Occ /HPF (0-2) Urine WBC >40 /HPF (0-4) Urine Squamous Epithelial Cells Many /LPF Urine Bacteria Many /HPF (0-FEW) Images Images PATIENT: IGNACIO BOYD ACCOUNT: [id number] : 1960 LOCATION: ER AGE: 59 SEX: F EXAM STATUS: REG ER ORD. PHYSICIAN: DILCIA LACY DO REASON: COUGH, SOA PROCEDURE: PORTABLE CHEST 1V PORTABLE CHEST 1V History: Cough, shortness of breath.. Cardiomediastinal silhouette is stable and not enlarged. The aorta again demonstrates ectasia and tortuosity. No evidence of focal infiltrate. No pleural effusion. No evidence of pneumothorax. Bones appear grossly intact. IMPRESSION: Stable exam. No consolidating infiltrate. Electronically signed by: Speedy Bellamy MD (12/28/2019 8:46 AM) [id number] DICTATED and SIGNED BY: SPEEDY BELLAMY MD DATE: 12/28/19 0846 VTE Prophylaxis Ordered VTE Prophylaxis Devices: Yes VTE Pharmacological Prophylaxi: Yes Assessment/Plan Assessment/Plan Impression: Chest pain morbid obesity Hypertensive crisis alcohol abuse noncompliance HX ADMITTED icu bed iv bp control cardiology consult IV HYDRALAZINE PRN BP CONTROL TREND TROPONIN I 37 min cc time JULIA SHINE MD Dec 28, 2019 11:52
[2019-12-28] MEDS ORDERED: ONDANSETRON PF 4 MG/2 ML VIAL. IV PRN (12:15)
[2019-12-28] MEDS ORDERED: ASPIRIN CHEWABLE 81 MG TABLET. PO ONE (12:15)
[2019-12-28] MEDS ORDERED: cloNIDine HCL 0.1 MG TABLET PO ONE (12:30)
== END 2019-12-28 12:25 | disposition left against medical advice (07) ==
LOC: ER 07:01 → 2 SOUTH 11:29 → UNDOADMOB 11:29 → ER 12:25
DX: R07.89 Other chest pain (principal); R05 Cough; I16.9 Hypertensive crisis, unspecified; F10.10 Alcohol abuse, uncomplicated; F41.9 Anxiety disorder, unspecified; I10 Essential (primary) hypertension; E66.01 Morbid (severe) obesity due to excess calories; Z68.45 Body mass index [BMI] 70 or greater, adult; Z91.19 Patient's noncompliance with other medical treatment and regimen
CPT/HCPCS: 36415; 71045; 71275; 74174; 80053; 81001; 83605; 84484; 85025; 85610; 85730; 87040; 87086; 93005; 96374; 96375; 99285; J0360; J0696; Q9967